=== PATIENT | female | born 1950 | race Caucasian/White ===

== ENCOUNTER → 2017-03-30 | Day surgery (SDC) | payer OTHER ==
[~2017-03-30] MED LIST: BUPIVACAINE/EPINEPHRINE 0.25% 50 ML VIAL ONE; KETOROLAC TROMETHAMINE 30 MG/ML (IVP) VIAL IV PUSH ONE; LACTATED RINGER'S 1000 ML INJ 1,000 ML ONE; MIDAZOLAM HCL 2 MG/2 ML VIAL ONE; ONDANSETRON HCL 4 MG/2 ML VIAL IV PUSH ONE; PROPOFOL 200 MG/20 ML AMP IV ONE; ceFAZolin INJ 1,000 MG VIAL ONE
--- NOTE | 2017-03-30 13:25 | MP ---
cc: KAVIN ZIMMERMAN M.D. DATE OF SURGERY 03/30/2017 PREOPERATIVE DIAGNOSIS Left knee medial meniscus tear. POSTOPERATIVE DIAGNOSES Left knee medial meniscus tear. PROCEDURE Left knee arthroscopic partial medial meniscectomy. SURGEON Dr. Kavin Zimmerman ANESTHESIA General REVIEW OF SYSTEMS Less than 10 cc TOURNIQUET TIME Zero minutes COMPLICATIONS None JUSTIFICATION This patient is a 67-year female who injured her left knee. She had persistent symptoms of pain in regards to condition and failure of conservative treatment. Clinical exam, as well as MRI confirmed the above-named findings. The patient was counseled as to the risks, benefits and alternatives to the above-named proposed surgical procedure. She did wish to proceed with surgery. PROCEDURE IN DETAIL A written consent was obtained. The patient identified by name, taken to the operating room, placed supine on the operating room table, general anesthesia was administered, as well as one gram of IV Ancef. The left thigh carefully placed in the well-padded leg yip. The left lower extremity prepped and draped using Isopropyl alcohol, Hibiclens solution and DuraPrep solution. After a time-out was performed, a standard medial and lateral parapatellar arthroscope portal was established. 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 The medial compartment revealed a large complex tear in the posterior horn of the medial meniscus with unstable cartilage fragmentation upon probing. An arthroscopic biter followed by an arthroscopic shaver was introduced into the medial compartment to perform partial meniscectomy. The meniscal rim was probed and noted to be stable after meniscectomy. 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 The intercondylar notch revealed the anterior and posterior cruciate ligaments to be intact. The lateral compartment was free of meniscal pathology with minimal chondromalacia. At the conclusion of the surgical procedure, 30 cc of 0.5% Marcaine with epinephrine was injected into the knee joint. The arthroscopic portals were closed with 3-0 Prolene suture. Sterile dressings were applied. The patient tolerated the procedure well. No intraoperative complications were noted. MD LONDON Rivero/NASEEM /8:07 AM /1:10 PM
== END | disposition home or self-care (01) ==
LOC: ESDC 06:19
PROVIDERS: ATTEND Orthopaedic Surgery Sports Medicine
DX: S83.232A Complex tear of medial meniscus, current injury, left knee, initial encounter (principal)
CPT/HCPCS: 01400; 29881; J0690; J1885; J2250; J2405; J7120